=== PATIENT | female | born 1995 | race Caucasian/White ===

== ENCOUNTER 2019-12-07 11:58 | Emergency (ER) | payer OTHER, SELFPAY ==
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
--- NOTE | 2019-12-07 12:22 | ECG_ITS ---
Measurements Intervals [place] Rate: 53 P: 37 MA: 145 QRS: 15 QRSD: 94 T: 24 QT: 458 QTc: 431 Interpretive Statements SINUS BRADYCARDIA BORDERLINE ECG Electronically Signed On 12-07-2019 12:56:50 CDT by Kam Lambert D.O.
[2019-12-07 12:23] VITALS: BP 134/82; PULSE 60; RESP 16; TEMP 37.2; O2SAT 99
[2019-12-07 12:49] LABS: Add Urine Microscopic? YES; Appearance Urine Clear (Clear); Basophils Absolute Auto 0.02 K/mm3 (0.00-0.10); Basophils Percent Auto 0.3 % (0.0-1.0); Bilirubin Urine Negative (Negative); Blood Urine Negative (Negative); Color Urine Yellow (Yellow); Eosinophils Absolute Auto 0.11 K/mm3 (0.02-0.50); Eosinophils Percent Auto 1.4 % (1.0-6.0); Glucose Urine UA Negative (Negative); Hemoglobin 14.1 g/dL (12.0-15.0); Immature Granulocyte Absolute 0.02 K/mm3 (0.00-0.00); Immature Granulocyte Percent A 0.3 % (0.0-0.0); Ketones Urine Negative (Negative); Leukocyte Esterase Ur 2+ LEU/UL (Negative); Lymphocytes Absolute Auto 1.97 K/mm3 (1.10-4.50); Lymphocytes Percent Auto 25.2 % (18.0-42.0); Mean Corpuscular HGB Conc 32.8 g/dL (32.0-36.0); Mean Corpuscular Hemoglobin 27.9 pg (27.0-31.0); Mean Corpuscular Volume 85.1 fL (78.0-102.0); Monocytes Absolute Auto 0.36 K/mm3 (0.10-0.90); Monocytes Percent Auto 4.6 % (2.0-11.0); Neutrophils Absolute Auto 5.4 K/mm3 (1.7-7.2); Neutrophils Percent Auto 68.2 % (50.0-70.0); Nitrate Urine Negative (Negative); Platelet Count Result 307 K/mm3 (150-420); Protein Urine Negative (Negative); Red Blood Count 5.05 M/mm3 (4.20-5.40); Red Cell Distribution Width 14.5 % (11.6-14.4); Specific Grav Ur 1.015 (1.010-1.020); Urobilinogen Urine 0.2 mg/dL (0.2-1.0); White Blood Count 7.8 K/mm3 (4.8-10.8)
[2019-12-07 12:56] LABS: RBC Urine 0-2 /hpf (0-2); Squamous Epithelial Cell Urine Few /hpf (Few); WBC Urine 16-20 /hpf (0-3)
[2019-12-07 12:57] LABS: Bacteria Urine Trace /hpf; Trichomonas Urine Present /hpf
[2019-12-07 13:02] LABS: Amphetamine Screen Urine Negative (Negative); Barbiturate Screen Urine Negative (Negative); Benzodiazepines Screen Urine Negative (Negative); Cannabinoid Screen Urine Positive (Negative); Cocaine Screen Urine Negative (Negative); Methadone Screen Urine Negative (Negative); Opiate Screen Urine Positive (Negative); Phencyclidine Screen Urine Negative (Negative)
[2019-12-07 13:14] LABS: Alanine Aminotransferase 14 U/L (14-59); Albumin Level 3.6 g/dL (3.4-5.0); Alkaline Phosphatase 108 U/L (46-116); Anion Gap 9 mmol/L (8-16); Aspartate Amino Transferase < 10 U/L (15-37); Bilirubin,Total 0.3 mg/dL (0.00-1.00); Blood Urea Nitrogen 4 mg/dL (7-18); Calcium 8.6 mg/dL (8.5-10.1); Carbon Dioxide 26 mmol/L (21-32); Chloride 104 mmol/L (98-108); Estimated CRCL calculation 84 ml/min; Estimated Glomerular Filt Rate > 60; Glucose 95 mg/dL (70-99); Osmolality Calculated 284 mOsm/kg (285-295); Potassium 3.6 mmol/L (3.5-5.1); Salicylate 5.1 mg/dL (2.8-20.0); Sodium 139 mmol/L (136-145); Thyroid Stimulating Hormone 1.12 uIU/mL (0.36-3.74); Total Protein 7.2 g/dL (6.4-8.2)
[2019-12-07 13:16] LABS: Acetaminophen 0 ug/mL (10-30); Ethanol < 3 mg/dL (0-6)
[2019-12-07 15:31] VITALS: BP 125/68; PULSE 59; RESP 16; O2SAT 98
--- NOTE | 2019-12-07 18:00 | PC.NURSE ---
Pt offered dinner tray. pt declined. Pt given pepsi.
[2019-12-07 18:23] VITALS: BP 125/79; PULSE 67; O2SAT 100
--- NOTE | 2019-12-07 18:54 | PC.NURSE ---
Pt requesting to go out to smoke, pt advised of policy and offered nicotine patch. pt declined.
--- NOTE | 2019-12-07 19:24 | PC.NURSE ---
attempted to call [facility] to give report, staff states that pt will not be able to be transferred to their facility until tomorrow morning after 9am.
[2019-12-07 20:45] VITALS: BP 128/62; PULSE 48; RESP 18; TEMP 37.4; O2SAT 98
--- NOTE | 2019-12-07 20:45 | PC.NURSE ---
Report to Will HARDIN, pt to go to room 207 while awaiting to be transfered to [facility] in the morning. Report to be called to [facility] in the AM at [phone].
--- NOTE | 2019-12-07 20:45 | PC.NURSE ---
pt arrived on floor via wheelchair, oriented to room and policies, orientated to equipment, pt is cooperative and sad, verbalizes understanding
[2019-12-07] MEDS: NITROFURANTOIN MONOHYD MACROCR 100 MG CAP PO (21:04)
--- NOTE | 2019-12-07 21:55 | PC.NURSE ---
pt sleeping, no evidence of distress noted, sitter at bedside
--- NOTE | 2019-12-08 00:09 | PC.NURSE ---
pt sleeping, no evidence of distress noted, sitter at bedside
--- NOTE | 2019-12-08 01:18 | PC.NURSE ---
Pt resting quietly in bed and doesnt voice any c/o discomfort. Pt doesnt voice any suicidal ideations at this time.
--- NOTE | 2019-12-08 01:55 | PC.NURSE ---
pt up to bathroom, denies any needs at this time
[2019-12-08 02:03] VITALS: BP 108/58; PULSE 53; RESP 20; TEMP 36.6; O2SAT 98
--- NOTE | 2019-12-08 05:08 | PC.NURSE ---
Pt asleep and no signs of distress noted.
--- NOTE | 2019-12-08 06:19 | PC.NURSE ---
Pt asleep and no signs of agitation or discomfort noted.
--- NOTE | 2019-12-08 06:40 | PC.NURSE ---
Pt asleep and no signs of discomfort or agitation noted.
--- NOTE | 2019-12-08 08:59 | PC.NURSE ---
Call back from [facility], call transferred to 2nd floor for charge nurse.
== END 2019-12-08 10:26 | disposition short-term general hospital (02) ==
PROVIDERS: Emergency Provider Emergency Medicine; PCP Family Medicine
DX: R45.851 Suicidal ideations (principal); F33.2 Major depressive disorder, recurrent severe without psychotic features; N39.0 Urinary tract infection, site not specified; F12.90 Cannabis use, unspecified, uncomplicated; F17.200 Nicotine dependence, unspecified, uncomplicated
CPT/HCPCS: 36415; 80053; 80307; 81001; 84443; 85025; 87086; 87088; 93005; 99284; 99285; A9270

== ENCOUNTER 2022-06-07 15:04 | Outpatient (CLI) | payer OTHER, SELFPAY ==
--- NOTE | ~2022-06-07 | XR_ITS ---
EXAMINATION: XR foot RT min 3V DATE: 06/07/2022 16:04 INDICATION: Pain across the right metatarsals 2 weeks after kicking a chair. TECHNIQUE: Dorsoplantar, two oblique and lateral views of the right foot were obtained. COMPARISON: None. FINDINGS: Alignment is normal. No fracture. Joint spaces are normal. Soft tissues are unremarkable. IMPRESSION: 1. Negative right foot radiographs. Reviewed, dictated and finalized at location A. LAB TECHNICIAN
[2022-06-07 15:43] LABS: Appearance Urine Clear (Clear); Basophils Absolute Auto 0.04 K/mm3 (0.00-0.10); Basophils Percent Auto 0.5 % (0.0-1.0); Bilirubin Urine Negative (Negative); Blood Urine 3+ (Negative); Color Urine Yellow (Yellow); Eosinophils Absolute Auto 0.22 K/mm3 (0.02-0.50); Eosinophils Percent Auto 2.8 % (1.0-6.0); Glucose Urine UA Negative (Negative); Hematocrit 43.1 % (35.0-49.0); Hemoglobin 14.4 g/dL (12.0-15.0); Immature Granulocyte Absolute 0.04 K/mm3 (0.00-0.00); Immature Granulocyte Percent A 0.5 % (0.0-0.0); Ketones Urine Negative (Negative); Leukocyte Esterase Ur Negative (Negative); Lymphocytes Absolute Auto 1.58 K/mm3 (1.10-4.50); Lymphocytes Percent Auto 20.4 % (18.0-42.0); Mean Corpuscular HGB Conc 33.4 g/dL (32.0-36.0); Mean Corpuscular Hemoglobin 29.1 pg (27.0-31.0); Mean Corpuscular Volume 87.2 fL (78.0-102.0); Mean Platelet Volume 10.3 fl (9.2-11.8); Monocytes Absolute Auto 0.34 K/mm3 (0.10-0.90); Monocytes Percent Auto 4.4 % (2.0-11.0); Neutrophils Absolute Auto 5.5 K/mm3 (1.7-7.2); Neutrophils Percent Auto 71.4 % (50.0-70.0); Nitrate Urine Negative (Negative); Platelet Count Result 299 K/mm3 (150-420); Protein Urine Negative (Negative); Red Blood Count 4.94 M/mm3 (4.20-5.40); Red Cell Distribution Width 12.6 % (11.6-14.4); Specific Grav Ur 1.015 (1.010-1.020); Urobilinogen Urine 0.2 mg/dL (0.2-1.0); White Blood Count 7.7 K/mm3 (4.8-10.8)
[2022-06-07 15:49] LABS: Add Urine Microscopic? YES; RBC Urine 21-50 /hpf (0-2)
[2022-06-07 15:50] LABS: Bacteria Urine 1+ /hpf; Creatinine Urine 209.65 mg/dL (40-278); MALB Creatinine Ratio 6.2 mg/g (0-30); Microalbumin Urine Random < 13.0 mg/L; Squamous Epithelial Cell Urine Few /hpf (Few); WBC Urine None seen /hpf (0-3)
[2022-06-07 16:08] LABS: Hemoglobin A1C 5.2 % (<5.7)
[2022-06-07 16:17] LABS: Alanine Aminotransferase 18 U/L (14-59); Alkaline Phosphatase 88 U/L (46-116); Anion Gap 12 mmol/L (8-16); Aspartate Amino Transferase 12 U/L (15-37); Bilirubin,Total 0.6 mg/dL (0.00-1.00); Blood Urea Nitrogen 10 mg/dL (7-18); Calcium 9.2 mg/dL (8.5-10.1); Carbon Dioxide 25 mmol/L (21-32); Chloride 105 mmol/L (98-108); Estimated Glomerular Filt Rate > 60; Glucose 105 mg/dL (70-99); Osmolality Calculated 293 mOsm/kg (285-295); Potassium 4.2 mmol/L (3.5-5.1); Sodium 142 mmol/L (136-145); Total Protein 7.2 g/dL (6.4-8.2)
== END 2022-06-07 15:05 | disposition home or self-care (01) ==
LOC: CHSLAB 15:07
PROVIDERS: PCP Family Medicine; Visit Provider Family Medicine
DX: R53.83 Other fatigue (principal)
CPT/HCPCS: 36415; 73630; 80053; 81001; 82043; 83036; 84443; 85025

== ENCOUNTER 2022-07-01 11:29 | Outpatient (CLI) | payer OTHER, SELFPAY ==
[2022-07-01 12:17] LABS: Influenza A QL RT-PCR Negative (Negative); Influenza B QL RT-PCR Negative (Negative); SARS-CoV-2 RNA PCR Negative (Negative)
== END 2022-07-01 11:30 | disposition home or self-care (01) ==
LOC: CHSLAB 11:31
PROVIDERS: PCP Family Medicine; Visit Provider Family Medicine
DX: R11.2 Nausea with vomiting, unspecified (principal); Z20.822 Contact with and (suspected) exposure to COVID-19
CPT/HCPCS: 87636

== ENCOUNTER 2023-01-20 12:13 | Outpatient (CLI) | payer OTHER, SELFPAY ==
--- NOTE | ~2023-01-20 | US_ITS ---
EXAMINATION: US soft tissue lower back DATE: 01/20/2023 12:40 INDICATION: Lump at the left lower back TECHNIQUE: Multiple grayscale and Doppler ultrasound images of the region of concern at the lower lef t back were obtained. COMPARISON: None FINDINGS/IMPRESSION: Normal appearance of subcutaneous tissues at the region of concern. No abnormal masses or fluid colle ctions identified. Reviewed, dictated and finalized at location A.
[2023-01-20 12:36] LABS: Basophils Absolute Auto 0.03 K/mm3 (0.00-0.10); Basophils Percent Auto 0.5 % (0.0-1.0); Eosinophils Absolute Auto 0.12 K/mm3 (0.02-0.50); Eosinophils Percent Auto 1.9 % (1.0-6.0); Hematocrit 39.9 % (35.0-49.0); Hemoglobin 13.2 g/dL (12.0-15.0); Immature Granulocyte Absolute 0.03 K/mm3 (0.00-0.00); Immature Granulocyte Percent A 0.5 % (0.0-0.0); Lymphocytes Percent Auto 23.7 % (18.0-42.0); Mean Corpuscular HGB Conc 33.1 g/dL (32.0-36.0); Mean Corpuscular Hemoglobin 29.5 pg (27.0-31.0); Mean Corpuscular Volume 89.3 fL (78.0-102.0); Mean Platelet Volume 9.9 fl (9.2-11.8); Monocytes Absolute Auto 0.38 K/mm3 (0.10-0.90); Neutrophils Absolute Auto 4.3 K/mm3 (1.7-7.2); Neutrophils Percent Auto 67.4 % (50.0-70.0); Platelet Count Result 252 K/mm3 (150-420); Red Blood Count 4.47 M/mm3 (4.20-5.40); Red Cell Distribution Width 12.4 % (11.6-14.4); White Blood Count 6.3 K/mm3 (4.8-10.8)
[2023-01-20 12:37] LABS: Appearance Urine Clear (Clear); Bilirubin Urine Negative (Negative); Blood Urine Negative (Negative); Color Urine Light Yellow (Yellow); Glucose Urine UA Negative (Negative); Ketones Urine Negative (Negative); Leukocyte Esterase Ur Negative (Negative); Nitrate Urine Negative (Negative); Protein Urine Negative (Negative); Specific Grav Ur 1.015 (1.010-1.020); Urobilinogen Urine 0.2 mg/dL (0.2-1.0)
[2023-01-20 13:01] LABS: Add Urine Microscopic? NO
[2023-01-20 13:44] LABS: Alanine Aminotransferase 10 U/L (14-59); Albumin Level 3.6 g/dL (3.4-5.0); Alkaline Phosphatase 71 U/L (46-116); Anion Gap 9 mmol/L (8-16); Aspartate Amino Transferase 15 U/L (15-37); Blood Urea Nitrogen 4 mg/dL (7-18); Calcium 9.1 mg/dL (8.5-10.1); Carbon Dioxide 27 mmol/L (21-32); Chloride 105 mmol/L (98-108); Cholesterol 169 mg/dL (0-200); Estimated Glomerular Filt Rate > 60; Free T4 Free Thyroxine 0.93 ng/dL (0.76-1.46); Glucose 82 mg/dL (70-99); HDL Direct 44 mg/dL (40-60); LDL Cholesterol Calculated 115 mg/dL (<130); Osmolality Calculated 287 mOsm/kg (285-295); Sodium 141 mmol/L (136-145); Thyroid Stimulating Hormone 1.37 uIU/mL (0.36-3.74); Total Protein 6.4 g/dL (6.4-8.2); Triglycerides 49 mg/dL (0-150)
[2023-01-20 13:57] LABS: Potassium 3.9 mmol/L (3.5-5.1)
== END 2023-01-20 12:14 | disposition home or self-care (01) ==
LOC: CHSLAB 12:15
PROVIDERS: PCP Family Medicine; Visit Provider Nurse Practitioner Family
DX: Z00.00 Encounter for general adult medical examination without abnormal findings (principal); N39.0 Urinary tract infection, site not specified; M79.9 Soft tissue disorder, unspecified; F41.9 Anxiety disorder, unspecified; R53.83 Other fatigue; Z82.2 Family history of deafness and hearing loss
CPT/HCPCS: 36415; 76705; 80053; 80061; 81003; 84439; 84443; 85025; 87086